=== PATIENT | male | born 1985 | race Caucasian/White ===

== ENCOUNTER 2018-03-30 20:18 | Emergency (ER) | payer SELFPAY ==
--- NOTE | 2018-03-30 21:20 | EDM.PDOC ---
ED HPI GENERAL MEDICAL PROBLEM - General Chief Complaint: Lower Extremity Injury/Pain Stated Complaint: PT HURT RT LEG Time Seen by Provider: 03/30/18 21:16 - History of Present Illness INITIAL COMMENTS - FREE TEXT/NARRATIVE: HISTORY AND PHYSICAL: History of present illness: Patient 32-year-old male whose presents with acute right knee injury in the form of having twisted it while at work earlier today he's had pain and swelling since he denies other trauma or concern Review of systems: As per history of present illness and below otherwise all systems reviewed and negative. Past medical history: As per history of present illness and as reviewed below otherwise noncontributory. Surgical history: As per history of present illness and as reviewed below otherwise noncontributory. Social history: No reported history of drug or alcohol abuse. Family history: As per history of present illness and as reviewed below otherwise noncontributory. Physical exam: HEENT: Atraumatic, normocephalic, pupils reactive, negative for conjunctival pallor or scleral icterus, mucous membranes moist, throat clear, neck supple, nontender, trachea midline. Lungs: Clear to auscultation, breath sounds equal bilaterally, chest nontender. Heart: S1S2, regular, negative for clicks, rubs, or JVD. Abdomen: Soft, nondistended, nontender. Negative for masses or hepatosplenomegaly. Negative for costovertebral tenderness. Pelvis: Stable nontender. Genitourinary: Deferred. Rectal: Deferred. Extremities: Right knee has some small swelling limited range of motion secondary to pain joint is grossly stable there is no crepitation or point tenderness CMS neurovascular exam is unremarkable. Neuro: Awake, alert, oriented. Cranial nerves II through XII unremarkable. Cerebellum unremarkable. Motor and sensory unremarkable throughout. Exam nonfocal. Diagnostics: X-ray right knee Therapeutics: Immobilizer/crutches Impression: # 1 acute right knee injury Definitive disposition and diagnosis as appropriate pending reevaluation and review of above. Right Knee Pain Score (Numeric/FACES): 7 - Related Data Allergies Allergy/AdvReac Type Severity Reaction Status Date / Time No Known Allergies Allergy Verified 03/30/18 20:34 Home Meds: Home Meds . [No Known Home Meds] 03/30/18 [History] Past Medical History HEENT History: Reports: None Cardiovascular History: Reports: None Respiratory History: Reports: None Gastrointestinal History: Reports: None Genitourinary History: Reports: None Musculoskeletal History: Reports: None Neurological History: Reports: None Psychiatric History: Reports: None Endocrine/Metabolic History: Reports: None Hematologic History: Reports: None Immunologic History: Reports: None Oncologic (Cancer) History: Reports: None Dermatologic History: Reports: None - Infectious Disease History Infectious Disease History: Reports: None - Past Surgical History Head Surgeries/Procedures: Reports: None Male Surgical History: Reports: None Social & Family History - Tobacco Use Smoking Status *Q: Current Every Day Smoker Years of Tobacco use: 15 Packs/Tins Daily: 0.5 - Caffeine Use Caffeine Use: Reports: None - Recreational Drug Use Recreational Drug Use: No Review of Systems - Review of Systems Review Of Systems: ROS reveals no pertinent complaints other than HPI. ED EXAM, GENERAL - Physical Exam Exam: See Below (See dictation) Course - Vital Signs Last Recorded V/S: Last Vital Signs Temp 37.2 C 03/30/18 20:32 Pulse 76 03/30/18 20:32 Resp 20 03/30/18 20:32 BP 123/74 03/30/18 20:32 Pulse Ox 98 03/30/18 20:32 - Orders/Labs/Meds Orders: Active Orders 24 hr Category Date Time Status Knee 3V Rt [CR] Stat Exams 03/30/18 21:18 Ordered Departure - Departure Time of Disposition: 21:19 Disposition: Home, Self-Care 01 Condition: Good Clinical Impression: Knee injury - Discharge Information Referrals: PCP,None [Primary Care Provider] - Additional Instructions: The following information is given to patients seen in the emergency department who are being discharged to home. This information is to outline your options for follow-up care. We provide all patients seen in our emergency department with a follow-up referral. The need for follow-up, as well as the timing and circumstances, are variable depending upon the specifics of your emergency department visit. If you don't have a primary care physician on staff, we will provide you with a referral. We always advise you to contact your personal physician following an emergency department visit to inform them of the circumstance of the visit and for follow-up with them and/or the need for any referrals to a consulting specialist. The emergency department will also refer you to a specialist when appropriate. This referral assures that you have the opportunity for followup care with a specialist. All of these measure are taken in an effort to provide you with optimal care, which includes your followup. Under all circumstances we always encourage you to contact your private physician who remains a resource for coordinating your care. When calling for followup care, please make the office aware that this follow-up is from your recent emergency room visit. If for any reason you are refused follow-up, please contact the [facility] emergency department at and asked to speak to the emergency department charge nurse. [facility] - Orth[facility] Clinic Professional Building [address] [place] [address], [address] [place] [address] Knee immobilizer/crutches as directed both/Tylenol as directed call to schedule appointment with orthopedic clinic above return as needed as discussed - My Orders Last 24 Hours: My Active Orders 03/30/18 21:18 Knee 3V Rt [CR] Stat - Assessment/Plan Last 24 Hours: My Active Orders 03/30/18 21:18 Knee 3V Rt [CR] Stat
--- NOTE | 2018-03-31 14:43 | CR ---
EXAM DATE: 03/30/18 PATIENT'S AGE: 32 Patient: MARY SWIFT Facility: [place], [place] Site . Site : 1985 Study: XRay Knee Right [id number] 9:38:38 PM Ordering Physician: Deepthi Arredondo Final Report: INDICATION: Twisting injury. FINDINGS: Three views of the right knee were obtained. There is no fracture seen or dislocation. There is no joint effusion. The joint space compartments are maintained. IMPRESSION: No acute bone abnormality. Dictated by Kb Cuellar MD @ 03/30/2018 9:44:31 PM Dictated by: Kb Cuellar MD @ 03/30/2018 21:44:38 (Electronic Signature) Report Signed by Proxy. CHUCK
== END 2018-03-30 22:31 | disposition home or self-care (01) ==
LOC: MW.ED 20:18
DX: S89.91XA Unspecified injury of right lower leg, initial encounter (principal); F17.210 Nicotine dependence, cigarettes, uncomplicated; X50.1XXA Overexertion from prolonged static or awkward postures, initial encounter; Y99.0 Civilian activity done for income or pay
CPT/HCPCS: 73562-26-RT; 73562-RT; 99282; 99283